=== PATIENT | male | born 1985 | race Caucasian/White ===

== ENCOUNTER 2018-12-20 23:31 | Day surgery (SDC) | payer BC ==
--- NOTE | 2018-12-21 00:13 | EDM.PDOC ---
ED HPI GENERAL MEDICAL PROBLEM - General Chief Complaint: Abdominal Pain Stated Complaint: SIDE PAIN Time Seen by Provider: 12/21/18 00:03 - History of Present Illness INITIAL COMMENTS - FREE TEXT/NARRATIVE: 33-year-old male presents emergency room with abdominal pain. This pain started about 7:00 this evening and awoke him from sleep. He has not had associated nausea vomiting with this but at times thinks he might get a little nauseated he had a normal BM this morning and no pain or frequency with urination. Patient has noted the pain mostly on his right side occasionally comes over to the left side up he has a very sharp shooting sensation into his groin. He denies any fevers or chills he last ate around noon today nothing unusual. Patient has no history of prior abdominal surgeries. Patient does smoke. Abdomen Pain Score (Numeric/FACES): 8 - Related Data Allergies Allergy/AdvReac Type Severity Reaction Status Date / Time Sulfa (Sulfonamide Allergy Hives Verified 12/21/18 00:02 Antibiotics) Home Meds: Home Meds . [No Known Home Meds] 12/21/18 [History] ED ROS GENERAL - Review of Systems Review Of Systems: See Below Constitutional: Reports: No Symptoms HEENT: Reports: No Symptoms Respiratory: Reports: No Symptoms Cardiovascular: Reports: No Symptoms GI/Abdominal: Reports: Abdominal Pain. Denies: Constipation, Diarrhea, Vomiting : Denies: Hematuria, Other Musculoskeletal: Reports: No Symptoms Skin: Reports: No Symptoms Neurological: Reports: No Symptoms ED EXAM, GI/ABD - Physical Exam Exam: See Below Exam Limited By: No Limitations General Appearance: Alert, No Apparent Distress Head: Atraumatic, Normocephalic Neck: Normal Inspection, Supple, Non-Tender, Full Range of Motion Respiratory/Chest: No Respiratory Distress, Lungs Clear, Normal Breath Sounds, No Accessory Muscle Use, Chest Non-Tender Cardiovascular: Normal Peripheral Pulses, Regular Rate, Rhythm, No Edema, No Gallop, No JVD, No Murmur, No Rub GI/Abdominal Exam: Normal Bowel Sounds, Soft, Rebound (He has mild rebound tenderness on 2 separate exams), Tender (He has tenderness the right upper quadrant and in the midepigastric area with palpation of the right upper quadrant causes pain to shoot the left upper quadrant. He also has pain that shoots into his groin, this is a very sharp pain. He has some mild right-sided CVA discomfort in the left) Back Exam: Normal Inspection, CVA Tenderness (R) (Mild). No: CVA Tenderness (L) Extremities: Normal Inspection, No Pedal Edema Neurological: Alert, Oriented, Normal Cognition Course - Vital Signs Last Recorded V/S: Last Vital Signs Temp 36.9 C 12/20/18 23:59 Pulse 90 12/20/18 23:59 Resp 16 12/20/18 23:59 BP 139/90 12/20/18 23:59 Pulse Ox 97 12/20/18 23:59 - Orders/Labs/Meds Orders: Active Orders 24 hr Category Date Time Status Abdomen Pelvis w Cont [CT] Stat Exams 12/21/18 01:06 Taken Labs: Laboratory Tests 12/21/18 12/21/18 12/21/18 Range/Units 00:15 01:25 01:25 WBC 18.77 H (4.23-9.07) K/mm3 RBC 4.48 L (4.63-6.08) M/mm3 Hgb 13.0 L (13.7-17.5) gm/L Hct 39.1 L (40.1-51.0) % MCV 87.3 (79.0-92.2) fl MCH 29.0 (25.7-32.2) pg MCHC 33.2 (32.2-35.5) g/dl RDW Std Deviation 44.5 H (35.1-43.9) fL Plt Count 280 (163-337) K/mm3 MPV 9.6 (9.4-12.3) fl Neutrophils % (Manual) 84 H (40-60) % Band Neutrophils % 0 (0-10) % Lymphocytes % (Manual) 13 L (20-40) % Atypical Lymphs % 0 % Monocytes % (Manual) 2 (2-10) % Eosinophils % (Manual) 1 (0.8-7.0) % Basophils % (Manual) 0 L (0.2-1.2) Platelet Estimate Adequate Plt Morphology Comment Normal RBC Morph Comment Normal Sodium 142 (136-145) mEq/L Potassium 3.9 (3.5-5.1) mEq/L Chloride 108 H (98-107) mEq/L Carbon Dioxide 25 (21-32) mEq/L Anion Gap 12.9 (5-15) BUN 7 (7-18) mg/dL Creatinine 0.8 (0.7-1.3) mg/dL Est Cr Clr Drug Dosing 151.07 mL/min Estimated GFR (MDRD) > 60 (>60) mL/min BUN/Creatinine Ratio 8.8 L (14-18) Glucose 111 H (74-106) mg/dL Calcium 10.3 H (8.5-10.1) mg/dL Total Bilirubin 0.4 (0.2-1.0) mg/dL AST 16 (15-37) U/L ALT 19 (16-63) U/L Alkaline Phosphatase 66 (46-116) U/L Total Protein 7.0 (6.4-8.2) g/dl Albumin 4.0 (3.4-5.0) g/dl Globulin 3.0 gm/dL Albumin/Globulin Ratio 1.3 (1-2) Lipase 79 (73-393) U/L Urine Color Yellow (Yellow) Urine Appearance Clear (Clear) Urine pH 7.0 (5.0-8.0) Ur Specific [place] 1.010 (1.005-1.030) Urine Protein Negative (Negative) Urine Glucose (UA) Negative (Negative) Urine Ketones Negative (Negative) Urine Occult Blood Negative (Negative) Urine Nitrite Negative (Negative) Urine Bilirubin Negative (Negative) Urine Urobilinogen 0.2 (0.2-1.0) Ur Leukocyte Esterase Negative (Negative) Urine RBC Not seen (0-5) /hpf Urine WBC Not seen (0-5) /hpf Ur Squamous Epith Cells 0-5 (0-5) /hpf Urine Bacteria Not seen (FEW) /hpf Urine Mucus Not seen (FEW) /hpf Meds: Medications Discontinued Medications Generic Name Dose Route Start Last Admin Trade Name Freq PRN Reason Stop Dose Admin Fentanyl 100 mcg 12/21/18 01:42 12/21/18 02:24 Sublimaze IVPUSH 12/21/18 01:43 100 mcg ONETIME ONE Administration Sodium Chloride 1,000 mls @ 999 mls/hr 12/21/18 01:04 12/21/18 01:29 Normal Saline IV 12/21/18 02:04 999 mls/hr ONETIME ONE Administration Iopamidol 100 ml 12/21/18 01:39 12/21/18 01:59 Isovue-370 (76%) IV 12/21/18 01:40 100 ml ONETIME ONE Administration Ondansetron HCl 4 mg 12/21/18 01:42 12/21/18 02:23 Zofran IVPUSH 12/21/18 01:43 4 mg ONETIME ONE Administration - Re-Assessments/Exams Free Text/Narrative Re-Assessment/Exam: 12/21/18 03:22 Laboratory results are only remarkable for a white count is elevated 18,000 urinalysis is entirely normal CT was obtained which shows an early uncomplicated acute appendicitis. Case discussed with Dr. Davis who will come in and evaluate the patient OR crew has been called. Departure - Departure Time of Disposition: 03:23 Disposition: Refer to Observation Clinical Impression: Appendicitis - Discharge Information Referrals: PCP,None [Primary Care Provider] - Forms: ED Department Discharge - My Orders Last 24 Hours: My Active Orders 12/21/18 01:06 Abdomen Pelvis w Cont [CT] Stat - Assessment/Plan Last 24 Hours: My Active Orders 12/21/18 01:06 Abdomen Pelvis w Cont [CT] Stat
[2018-12-21] MEDS ORDERED: Sodium Chloride 0.9% 1,000 ML IV ONE (01:04)
[2018-12-21] MEDS ORDERED: Iopamidol 755 Mg/ML 200 ML Bottle IV ONE (01:39)
[2018-12-21] MEDS ORDERED: Ondansetron 4 MG/2 ML SDV IVPUSH ONE (01:42)
[2018-12-21] MEDS ORDERED: fentaNYL 100 MCG/2 ML SDV IVPUSH ONE (01:42)
[2018-12-21] MEDS ORDERED: Rocuronium 50 MG/5 ML Vial ONE (03:49)
[2018-12-21] MEDS ORDERED: Ondansetron 4 MG/2 ML SDV ONE (03:49)
[2018-12-21] MEDS ORDERED: Lidocaine 1% 4 ML ONE (03:49)
[2018-12-21] MEDS ORDERED: fentaNYL 250 MCG/5 ML SDV ONE (03:50)
[2018-12-21] MEDS ORDERED: Propofol 200 MG/20 ML SDV ONE (03:50)
[2018-12-21] MEDS ORDERED: Midazolam 1 MG/ML 2 ML SDV ONE (03:50)
[2018-12-21] MEDS ORDERED: Bupivacaine 0.5% 30 ML SDV ONE (03:52)
--- NOTE | 2018-12-21 04:04 | PCM.PREANE ---
Preanesthetic Assessment - Procedure Proposed Procedure: lap appy - Anesthesia/Transfusion/Family Hx Anesthesia History: No Prior Anesthesia Family History of Anesthesia Reaction: No Transfusion History: No Prior Transfusion(s) - Review of Systems General: Fever Pulmonary: Shortness of Breath (from muscles being so tight) Cardiovascular: No Symptoms Gastrointestinal: Abdominal Pain (started 730pm last night) Neurological: No Symptoms Other: Reports: None - Physical Assessment NPO Status Date: 12/20/18 (water at 11 pm) NPO Status Time: 12:00 O2 Sat by Pulse Oximetry: 97 Respiratory Rate: 16 Vital Signs: Last Vital Signs Temp 98.4 F 12/20/18 23:59 Pulse 90 12/20/18 23:59 Resp 16 12/20/18 23:59 BP 139/90 12/20/18 23:59 Pulse Ox 97 12/20/18 23:59 Height: 6 ft 1 in Weight: 79.832 kg ASA Class: 2E Mental Status: Alert & Oriented x3 Airway Class: Mallampati = 1 Dentition: Reports: Normal Dentition Thyro-Mental Finger Breadths: 3 Mouth Opening Finger Breadths: 3 ROM/Head Extension: Full Lungs: Clear to Auscultation, Normal Respiratory Effort Cardiovascular: Regular Rate, Regular Rhythm - Lab Values: Laboratory Last Values WBC 18.77 K/mm3 (4.23-9.07) H 12/21/18 01:25 RBC 4.48 M/mm3 (4.63-6.08) L 12/21/18 01:25 Hgb 13.0 gm/L (13.7-17.5) L 12/21/18 01:25 Hct 39.1 % (40.1-51.0) L 12/21/18 01:25 MCV 87.3 fl (79.0-92.2) 12/21/18 01:25 MCH 29.0 pg (25.7-32.2) 12/21/18 01:25 MCHC 33.2 g/dl (32.2-35.5) 12/21/18 01:25 RDW Std Deviation 44.5 fL (35.1-43.9) H 12/21/18 01:25 Plt Count 280 K/mm3 (163-337) 12/21/18 01:25 MPV 9.6 fl (9.4-12.3) 12/21/18 01:25 Neutrophils % (Manual) 84 % (40-60) H 12/21/18 01:25 Band Neutrophils % 0 % (0-10) 12/21/18 01:25 Lymphocytes % (Manual) 13 % (20-40) L 12/21/18 01:25 Atypical Lymphs % 0 % 12/21/18 01:25 Monocytes % (Manual) 2 % (2-10) 12/21/18 01:25 Eosinophils % (Manual) 1 % (0.8-7.0) 12/21/18 01:25 Basophils % (Manual) 0 (0.2-1.2) L 12/21/18 01:25 Platelet Estimate Adequate 12/21/18 01:25 Plt Morphology Comment Normal 12/21/18 01:25 RBC Morph Comment Normal 12/21/18 01:25 Sodium 142 mEq/L (136-145) 12/21/18 01:25 Potassium 3.9 mEq/L (3.5-5.1) 12/21/18 01:25 Chloride 108 mEq/L (98-107) H 12/21/18 01:25 Carbon Dioxide 25 mEq/L (21-32) 12/21/18 01:25 Anion Gap 12.9 (5-15) 12/21/18 01:25 BUN 7 mg/dL (7-18) 12/21/18 01:25 Creatinine 0.8 mg/dL (0.7-1.3) 12/21/18 01:25 Est Cr Clr Drug Dosing 151.07 mL/min 12/21/18 01:25 Estimated GFR (MDRD) > 60 mL/min (>60) 12/21/18 01:25 BUN/Creatinine Ratio 8.8 (14-18) L 12/21/18 01:25 Glucose 111 mg/dL (74-106) H 12/21/18 01:25 Calcium 10.3 mg/dL (8.5-10.1) H 12/21/18 01:25 Total Bilirubin 0.4 mg/dL (0.2-1.0) 12/21/18 01:25 AST 16 U/L (15-37) 12/21/18 01:25 ALT 19 U/L (16-63) 12/21/18 01:25 Alkaline Phosphatase 66 U/L (46-116) 12/21/18 01:25 Total Protein 7.0 g/dl (6.4-8.2) 12/21/18 01:25 Albumin 4.0 g/dl (3.4-5.0) 12/21/18 01:25 Globulin 3.0 gm/dL 12/21/18 01:25 Albumin/Globulin Ratio 1.3 (1-2) 12/21/18 01:25 Lipase 79 U/L (73-393) 12/21/18 01:25 Urine Color Yellow (Yellow) 12/21/18 00:15 Urine Appearance Clear (Clear) 12/21/18 00:15 Urine pH 7.0 (5.0-8.0) 12/21/18 00:15 Ur Specific [place] 1.010 (1.005-1.030) 12/21/18 00:15 Urine Protein Negative (Negative) 12/21/18 00:15 Urine Glucose (UA) Negative (Negative) 12/21/18 00:15 Urine Ketones Negative (Negative) 12/21/18 00:15 Urine Occult Blood Negative (Negative) 12/21/18 00:15 Urine Nitrite Negative (Negative) 12/21/18 00:15 Urine Bilirubin Negative (Negative) 12/21/18 00:15 Urine Urobilinogen 0.2 (0.2-1.0) 12/21/18 00:15 Ur Leukocyte Esterase Negative (Negative) 12/21/18 00:15 Urine RBC Not seen /hpf (0-5) 12/21/18 00:15 Urine WBC Not seen /hpf (0-5) 12/21/18 00:15 Ur Squamous Epith Cells 0-5 /hpf (0-5) 12/21/18 00:15 Urine Bacteria Not seen /hpf (FEW) 12/21/18 00:15 Urine Mucus Not seen /hpf (FEW) 12/21/18 00:15 - Allergies Allergies/Adverse Reactions: Allergies Allergy/AdvReac Type Severity Reaction Status Date / Time Sulfa (Sulfonamide Allergy Hives Verified 12/21/18 00:02 Antibiotics) - Blood Blood Available: No - Acknowledgements Anesthesia Type Planned: General Anesthesia Pt an Appropriate Candidate for the Planned Anesthesia: Yes Alternatives and Risks of Anesthesia Discussed w Pt/Guardian: Yes Pt/Guardian Understands and Agrees with Anesthesia Plan: Yes PreAnesthesia Questionnaire Cardiovascular History: Reports: None Respiratory History: Reports: None Gastrointestinal History: Reports: None Genitourinary History: Reports: None - Past Surgical History HEENT Surgical History: Reports: Tonsillectomy Neurological Surgical History: Reports: Other (See Below) (thoracic lumbar spinal injections for neuralgia) - History Comment History Comment: takes excedrin every day- 2pills- for headache- - SUBSTANCE USE Smoking Status *Q: Current Every Day Smoker (1 ppd for 15 years) Tobacco Use Within Last Twelve Months: Cigarettes Second Hand Smoke Exposure: Yes Days Per Week of Alcohol Use: 0 Recreational Drug Use History: No - HOME MEDS Home Medications: Home Meds . [No Known Home Meds] 12/21/18 [History] - CURRENT (IN HOUSE) MEDS Current Meds: Current Medications Discontinued Medications Bupivacaine HCl (Marcaine 0.5%) Confirm Administered Dose 30 ml .ROUTE .STK-MED ONE Stop: 12/21/18 03:53 Fentanyl (Sublimaze) 100 mcg IVPUSH ONETIME ONE Stop: 12/21/18 01:43 Last Admin: 12/21/18 02:24 Dose: 100 mcg Fentanyl (Sublimaze) Confirm Administered Dose 250 mcg .ROUTE .STK-MED ONE Stop: 12/21/18 03:51 Sodium Chloride (Normal Saline) 1,000 mls @ 999 mls/hr IV ONETIME ONE Stop: 12/21/18 02:04 Last Admin: 12/21/18 01:29 Dose: 999 mls/hr Lidocaine HCl (Xylocaine-Mpf 1%) Confirm Administered Dose 4 mls @ as directed .ROUTE .STK-MED ONE Stop: 12/21/18 03:50 Iopamidol (Isovue-370 (76%)) 100 ml IV ONETIME ONE Stop: 12/21/18 01:40 Last Admin: 12/21/18 01:59 Dose: 100 ml Midazolam HCl (Versed 1 Mg/Ml) Confirm Administered Dose 2 mg .ROUTE .STK-MED ONE Stop: 12/21/18 03:51 Ondansetron HCl (Zofran) 4 mg IVPUSH ONETIME ONE Stop: 12/21/18 01:43 Last Admin: 12/21/18 02:23 Dose: 4 mg Ondansetron HCl (Zofran) Confirm Administered Dose 4 mg .ROUTE .STK-MED ONE Stop: 12/21/18 03:50 Propofol (Diprivan 20 Ml) Confirm Administered Dose 200 mg .ROUTE .STK-MED ONE Stop: 12/21/18 03:51 Rocuronium Ecru (Zemuron) Confirm Administered Dose 50 mg .ROUTE .STK-MED ONE Stop: 12/21/18 03:50
[2018-12-21] MEDS ORDERED: cefOXitin 2 GM in Premix Bag 1 BAG IV ONE (04:07)
[2018-12-21] MEDS ORDERED: metroNIDAZOLE/Normal Saline 500 MG in Premix Bag 1 BAG IV ONE (04:07)
[2018-12-21] MEDS ORDERED: metroNIDAZOLE/Normal Saline 100 ML ONE (04:16)
[2018-12-21] MEDS ORDERED: Succinylcholine/Normal Saline 100 MG/5 ML Syringe ONE (04:21)
[2018-12-21] MEDS ORDERED: HYDROmorphone 0.5 MG/0.5 ML Syringe ONE (04:30)
[2018-12-21] MEDS ORDERED: Ondansetron 4 MG/2 ML SDV IVPUSH PRN (04:37)
[2018-12-21] MEDS ORDERED: HYDROmorphone 0.5 MG/0.5 ML Syringe IVPUSH PRN (04:37)
[2018-12-21] MEDS ORDERED: Ketorolac 30 MG/ML SDV ONE (04:38)
[2018-12-21] MEDS ORDERED: Ketamine 500 mg/10 ML MDV ONE (04:41)
[2018-12-21] MEDS ORDERED: Neostigmine Methylsulfate 1 MG/ML 5 ML Syringe ONE (04:52)
--- NOTE | 2018-12-21 05:11 | PCM.OPNOTE ---
- General Post-Op/Procedure Note Date of Surgery/Procedure: 12/21/18 Operative Procedure(s): lap appy Pre Op Diagnosis: acute appendicitis Post-Op Diagnosis: Same Anesthesia Technique: General ET Tube Primary Surgeon: Lawrence Davis EBL in mLs: 2 Complications: None Condition: Good
--- NOTE | 2018-12-21 05:29 | PCM.POSTAN ---
POST ANESTHESIA ASSESSMENT - MENTAL STATUS Mental Status: Somnolent - VITAL SIGNS Pulse Rate: 82 SaO2: 95 Resp Rate: 18 Blood Pressure: 139/69 Temperature: 99.1 F - RESPIRATORY Respiratory Status: Respiratory Rate WNL, Airway Patent, O2 Saturation Stable, Supplemental Oxygen - CARDIOVASCULAR CV Status: Pulse Rate WNL, Blood Pressure Stable - GASTROINTESTINAL GI Status: No Symptoms - PAIN Pain Score: 0 - POST OP HYDRATION Hydration Status: Adequate & Stable
[2018-12-21] MEDS ORDERED: Acetaminophen/HYDROcodone 325-5 MG Tab PO PRN (05:41)
--- NOTE | 2018-12-21 06:29 | PCM48HPAN ---
Post Anesthesia Note - EVALUATION WITHIN 48HRS OF ANESTHETIC Vital Signs in Normal Range: Yes Patient Participated in Evaluation: Yes Respiratory Function Stable: Yes Airway Patent: Yes Cardiovascular Function Stable: Yes Hydration Status Stable: Yes Pain Control Satisfactory: Yes (abd pain ok- still has somewhat of a headache as preop) Nausea and Vomiting Control Satisfactory: Yes Mental Status Recovered: Yes Pulse Rate: 82 Resp Rate: 12 Temperature: 99.1 F Blood Pressure: 139/69
--- NOTE | 2018-12-21 07:40 | CT ---
CT abdomen and pelvis Technique: Multiple axial sections were obtained from above the dome of the diaphragm inferiorly through the pubic symphysis. Intravenous contrast was utilized. Delayed images were obtained through the bladder. No oral contrast has been given. Findings: Dilated retrocecal appendix is seen. Mild inflammatory change is seen compatible with early appendicitis. Visualized lung bases show nothing acute. Liver shows no focal abnormality. Spleen is normal. Adrenal glands show no nodule. Kidney show symmetric contrast enhancement without hydronephrosis or mass. Gallbladder contains no calcified gallstones. Pancreas is normal. Aorta shows no aneurysm. No retroperitoneal adenopathy or mesenteric abnormalities are seen. No pelvic mass or adenopathy is seen. Delayed images show contrast within the distal ureters and within the bladder. Bone window settings were reviewed which appear within normal limits for the patient's age. Impression: 1. Findings compatible with appendicitis. 2. Other portions of the CT exam of the abdomen and pelvis appear within normal limits. Diagnostic code #5 Agree with preliminary report issued by [employer], preliminary report finalized on 12/21/18, 4:04 AM Central Time
--- NOTE | 2018-12-21 10:23 | HP ---
DATE OF ADMISSION: 12/21/2018 HISTORY OF PRESENT ILLNESS: The patient is a 33-year-old, who presented to the emergency room because of abdominal pain, especially in the right lower quadrant. It started yesterday evening around 7 or 8 o'clock. The pain was persistent, increased in intensity, and caused him to go to the ER with some concern for a renal stone and a CT scan was done showing acute appendicitis. He has never had this pain before. PAST MEDICAL HISTORY: He has had his back surgery in the past. SOCIAL HISTORY: He does smoke, but no alcohol. ALLERGIES: None known. FAMILY HISTORY: Diabetes in the family. CURRENT MEDICATIONS: None. REVIEW OF SYSTEMS: No chest pain, shortness of breath, cough, hoarseness, wheezing, fainting, weakness, numbness, convulsions, or diarrhea. No nausea. No vomiting. Does have abdominal pain. PHYSICAL EXAMINATION: GENERAL: Reveals an alert and cooperative male. HEENT: Eyes: Sclerae white. Extraocular muscle motion normal. Oral Cavity: Healthy mucous membranes. LUNGS: Clear. No rales, rhonchi, fremitus, or dullness. HEART: Heart tones regular rate. No S3, S4, jugular venous distention, or murmurs. ABDOMEN: Shows tenderness, quite exquisite in the right lower quadrant. EXTREMITIES: Upper and lower extremities, no angulation deformities. SKIN: Shows warm and dry and multiple tattoos. PSYCHIATRIC: Normal. NEUROLOGIC: No sensorineural deficit. VITAL SIGNS: Temperature 36, pulse 90, and respirations 16. LABORATORY DATA: Reviewed. Laboratory data shows white count of 18,000 and CMP looks good. ASSESSMENT: Acute appendicitis. PLAN: For laparoscopic appendectomy. Discussed the procedure, risks, and complications. He understands and consents. MMODAL /[id number]
--- NOTE | 2018-12-22 10:17 | OR ---
DATE OF OPERATION: 12/21/2018 SURGEON: Lawrence Davis MD PREOPERATIVE DIAGNOSIS: Acute appendicitis. POSTOPERATIVE DIAGNOSIS: Acute appendicitis. OPERATION PERFORMED: Laparoscopic appendectomy done under general anesthetic. FINDINGS: Swollen appendix without any reaction of peritoneum around the appendix. ESTIMATED BLOOD LOSS: About 2 mL. DESCRIPTION OF PROCEDURE: The patient was taken to the operating room, placed in a supine position, given a general anesthetic, and intubated with the abdomen having been clipped and prepped with chlorhexidine prep. He was draped off in a sterile fashion and an incision was made just below the umbilicus and carried down by sharp dissection to the fascia, which was incised. Abdominal cavity entered. Yeny trocar placed and secured with stay sutures. Pneumoperitoneum established, and a 5-mm 30-degree camera inserted. The patient was placed in reverse Trendelenburg leftward tilt. Appendix was noted in the right lower quadrant, which was swollen. A 5-mm port was placed in the right upper quadrant and one in the right lower quadrant. The appendix was then mobilized. Mesoappendix was then mobilized. A window was placed at the base of the appendix. An Endo-ligator was then inserted through this window and the appendix was from the cecum. Another firing of Endo-ligator the mesoappendix from the appendix. The area was watched and no bleeding was noted. The appendix was placed in an endobag and removed from the abdominal cavity, and pneumoperitoneum and ports were removed. The fascia was then closed in the subumbilical port with a running 0 Vicryl suture. The skin of each port closed with subdermal 4-0 Dexon suture. Steri-Strips and sterile dressing placed. The patient tolerated the procedure and sent to the recovery room in a stable condition. ANESTHESIA: MMODAL /[id number]
== END 2018-12-21 07:10 | disposition home or self-care (01) ==
LOC: JD.ED 23:31 → JD.SDS 12-21 03:26
PROVIDERS: ATTEND Surgery
DX: K35.30 Acute appendicitis with localized peritonitis, without perforation or gangrene (principal); F17.210 Nicotine dependence, cigarettes, uncomplicated; Z88.2 Allergy status to sulfonamides
CPT/HCPCS: 36415; 44970; 74177; 80053; 81001; 83690; 85007; 85027; 96361; 96374; 96375; 99285; A9270; J0330; J0694; J1170; J1885; J2001; J2250; J2405; J2704; J2710; J3010; J3490; J7040; Q9967; 00840; 99284

== ENCOUNTER 2019-01-21 09:03 | Emergency (ER) | payer BC ==
[2019-01-21] MEDS ORDERED: Ampicillin/Sulbactam Na 3 GM in Sodium Chloride 0.9% 100 ML IV ONE (09:38)
[2019-01-21] MEDS ORDERED: HYDROmorphone 1 MG/ML Syringe IVPUSH ONE (09:39)
[2019-01-21] MEDS ORDERED: Ondansetron 4 MG/2 ML SDV IVPUSH ONE (09:39)
[2019-01-21] MEDS ORDERED: Sodium Chloride 0.9% 1,000 ML IV SCH (09:45)
--- NOTE | 2019-01-21 09:52 | EDM.PDOC ---
ED HPI GENERAL MEDICAL PROBLEM - General Chief Complaint: ENT Problem Stated Complaint: THROAT PAIN/HOT SWEATS/RECENT APPENDECTOMY Time Seen by Provider: 01/21/19 09:15 Source of Information: Reports: Patient, RN Notes Reviewed History Limitations: Reports: No Limitations - History of Present Illness INITIAL COMMENTS - FREE TEXT/NARRATIVE: The patient underwent appendectomy on 12/21/2018. He states that after surgery, his throat was sore, as would be expected following general anesthesia with endotracheal intubation. The sore throat resolved. The patient now presents to the ED stating that he developed a sore throat on the left, that has progressively been getting worse, with the sensation of throat swelling, for the past 3-4 days. He has had chills and subjective fever that have been coming and going for the past 3 days. He complains of a left earache. He has had a headache, that extends from the left base of his head all the way across the left side of his head, for the past 3 days. He describes the character of the headache as a pressure sensation. He reports both photophobia and phonophobia. No visual changes. No nausea or vomiting. The patient also reports pain to his left posterior neck with a mild tingling sensation radiating down his entire left upper extremity to the 5th finger. His left neck and left upper extremity discomfort are not modified with head position. No prior similar symptoms. The patient states that he has been taking ibuprofen. 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 The patient does not have a PCP. Treatments POLYSOMNOGRAPHY TECH: Reports: NSAIDS Neck Pain Score (Numeric/FACES): 8 - Related Data Allergies Allergy/AdvReac Type Severity Reaction Status Date / Time Sulfa (Sulfonamide Allergy Hives Verified 12/21/18 00:02 Antibiotics) Home Meds: Home Meds . [No Known Home Meds] 12/21/18 [History] Past Medical History Neurological History: Reports: Other (See Below) (Right thoracolumbar post- zoster neuralgia) - Infectious Disease History Infectious Disease History: Reports: Chicken Pox, Influenza, Shingles - Past Surgical History HEENT Surgical History: Reports: Oral Surgery (wisdom teeth extraction), Tonsillectomy GI Surgical History: Reports: Appendectomy (4/) Neurological Surgical History: Reports: Other (See Below) (Right thoracolumbar nerve ablation) - History Comment History Comment: takes excedrin every day- 2pills- for headache- Social & Family History - Family History Family Medical History: Noncontributory - Tobacco Use Smoking Status *Q: Current Every Day Smoker Years of Tobacco use: 19 Packs/Tins Daily: 0.5 Packs/Tins Daily Comment: Down from 2 ppd - Caffeine Use Caffeine Use: Reports: Energy Drinks - Alcohol Use Alcohol Use History: No - Recreational Drug Use Recreational Drug Use: No - Living Situation & Occupation Living situation: Reports: , with Significant Other (Fiance), with Family (Son) Occupation: Employed ([employer]) ED ROS ENT - Review of Systems Review Of Systems: ROS reveals no pertinent complaints other than HPI. ED EXAM, ENT - Physical Exam Exam: See Below Exam Limited By: No Limitations General Appearance: Alert, WD/WN, No Apparent Distress Eye Exam: Bilateral Eye: EOMI, Normal Inspection Ears: Normal External Exam, Normal Canal, Hearing Grossly Normal, Normal TMs ( including on the left) Nose: Normal Inspection, Other (Bilateral nasal mucosa edema) Mouth/Throat: Normal Gums, Normal Lips, Normal Teeth, Pharyngeal Erythema (on left), Throat Swelling (mild, on left), Other (Tonsils absent). No: Uvular Deviation Head: Atraumatic, Normocephalic Neck: Supple, Full Range of Motion, Lymphadenopathy (L) (posterior cervical chain only. Tender.). No: Lymphadenopathy (R) Respiratory/Chest: No Respiratory Distress, Lungs Clear, Normal Breath Sounds, No Accessory Muscle Use Cardiovascular: Normal Peripheral Pulses, Regular Rate, Rhythm, No Edema, No Gallop, No JVD, No Murmur, No Rub GI/Abdominal: Normal Bowel Sounds, Soft, Non-Tender, No Organomegaly, No Distention, No Abnormal Bruit, No Mass (Male) Exam: Deferred Rectal (Males) Exam: Deferred Back: Normal Inspection, Full Range of Motion Extremities: Normal Inspection, Normal Range of Motion, No Pedal Edema, Normal Capillary Refill Neurological: Alert, Oriented, Normal Cognition, No Motor/Sensory Deficits Psychiatric: Normal Affect Skin: Warm, Dry, Intact, Normal Color, No Rash Course - Vital Signs Last Recorded V/S: Last Vital Signs Temp 36.6 C 01/21/19 09:11 Pulse 95 01/21/19 09:11 Resp 16 01/21/19 09:11 BP 141/87 H 01/21/19 09:11 Pulse Ox 100 01/21/19 09:11 - Orders/Labs/Meds Orders: Active Orders 24 hr Category Date Time Status Soft Tissue Neck w Cont [CT] Stat Exams 01/21/19 09:35 Taken CULTURE STREP A CONFIRMATION [] Stat Lab 01/21/19 09:30 Results STREP SCRN A RAPID W CULT CONF [] Stat Lab 01/21/19 09:30 Results Sodium Chloride 0.9% [Normal Saline] 1,000 ml Med 01/21/19 09:45 Active IV ASDIRECTED Medication Orders Sodium Chloride (Normal Saline) 1,000 mls @ 150 mls/hr IV ASDIRECTED FRANCISCO Last Admin: 01/21/19 09:52 Dose: 150 mls/hr Labs: Laboratory Tests 01/21/19 01/21/19 Range/Units 09:40 09:40 WBC 13.75 H (4.23-9.07) K/mm3 RBC 4.25 L (4.63-6.08) M/mm3 Hgb 12.1 L (13.7-17.5) gm/L Hct 36.8 L (40.1-51.0) % MCV 86.6 (79.0-92.2) fl MCH 28.5 (25.7-32.2) pg MCHC 32.9 (32.2-35.5) g/dl RDW Std Deviation 42.4 (35.1-43.9) fL Plt Count 318 (163-337) K/mm3 MPV 9.5 (9.4-12.3) fl Neutrophils % (Manual) 68 H (40-60) % Band Neutrophils % 0 (0-10) % Lymphocytes % (Manual) 13 L (20-40) % Atypical Lymphs % 0 % Monocytes % (Manual) 15 H (2-10) % Eosinophils % (Manual) 3 (0.8-7.0) % Basophils % (Manual) 1 (0.2-1.2) Platelet Estimate Adequate RBC Morph Comment Normal Sodium 138 (136-145) mEq/L Potassium 4.0 (3.5-5.1) mEq/L Chloride 103 (98-107) mEq/L Carbon Dioxide 26 (21-32) mEq/L Anion Gap 13.0 (5-15) BUN 12 (7-18) mg/dL Creatinine 0.9 (0.7-1.3) mg/dL Est Cr Clr Drug Dosing 134.40 mL/min Estimated GFR (MDRD) > 60 (>60) mL/min BUN/Creatinine Ratio 13.3 L (14-18) Glucose 113 H (74-106) mg/dL Calcium 8.9 (8.5-10.1) mg/dL Total Bilirubin 0.3 (0.2-1.0) mg/dL AST 13 L (15-37) U/L ALT 16 (16-63) U/L Alkaline Phosphatase 80 (46-116) U/L Total Protein 7.7 (6.4-8.2) g/dl Albumin 3.8 (3.4-5.0) g/dl Globulin 3.9 gm/dL Albumin/Globulin Ratio 1.0 (1-2) Meds: Medications Generic Name Dose Route Start Last Admin Trade Name Elsy PRN Reason Stop Dose Admin Sodium Chloride 1,000 mls @ 150 mls/hr 01/21/19 09:45 01/21/19 09:52 Normal Saline IV 150 mls/hr ASDIRECTED FRANCISCO Administration Discontinued Medications Generic Name Dose Route Start Last Admin Trade Name Elsy PRN Reason Stop Dose Admin Hydromorphone HCl 1 mg 01/21/19 09:39 01/21/19 09:54 Dilaudid IVPUSH 01/21/19 09:40 1 mg ONETIME ONE Administration Ampicillin Sodium/Sulbactam 100 mls @ 200 mls/hr 01/21/19 09:38 01/21/19 09: 58 Sodium 3 gm/ Sodium Chloride IV 01/21/19 10:07 200 mls/hr ONETIME ONE Administration Iohexol 60 ml 01/21/19 10:27 01/21/19 10:48 Omnipaque-300 IVPUSH 01/21/19 10:28 60 ml ONETIME ONE Administration Nicotine 21 mg 01/21/19 09:58 01/21/19 10:11 Habitrol TRDERM 01/21/19 09:59 21 mg ONETIME ONE Administration Ondansetron HCl 4 mg 01/21/19 09:39 01/21/19 09:52 Zofran IVPUSH 01/21/19 09:40 4 mg ONETIME ONE Administration - Re-Assessments/Exams Free Text/Narrative Re-Assessment/Exam: 01/21/19 10:07 The patient appears to have retropharyngeal cellulitis versus an abscess. I have ordered a CT of the neck with IV contrast, along with blood work and a rapid strep test, which I expect to be negative, to evaluate, but in the meantime, the patient will be started on Unasyn. I ordered some Dilaudid, Zofran , and IV fluid for discomfort. The patient will need to be hospitalized, likely for a couple of days, to receive IV antibiotics, until he has clinically turned the corner, at which time he can be switched to oral antibiotics. Dr. Hoffman was here in the ED, and we discussed the case - I will call him when I have the CT results. If the patient requires incision and drainage, he will need to be transferred to [facility] for ENT evaluation. 01/21/19 11:59 Notified by the [facility] Radiologist at 11:55 that the patient has a peritonsillar phlegmon, however, when I mentioned that the patient had a tonsillectomy as a teenager, he changed his opinion to that of a retropharyngeal abscess. 01/21/19 12:02 CT of the neck with IV contrast is read by [facility] as "There is suggestion of left- sided tonsillitis with extensive 3 x 3 x 3.6 cm regional phlegmon involving the parapharyngeal space. There is more ill-defined retropharyngeal fluid which may be reactive or related to more extensive/of abscess. 01/21/19 12:09 CT results discussed with the patient. The patient will require transfer to [facility]. He does not have a preference of [facility] versus [facility]. CT images pushed to [facility] at 12:08. 01/21/19 12:[address] Yoan Francis, ENT at [facility], at 12:14. He agreed that the patient should be transferred, but the patient will be admitted to the Hospitalist, with him on consult. Case then discussed with Dr. Landaverde, Hospitalist at [facility], at 12: 19. He accepted the patient for direct admission to their facility. The patient will be transported by ground ambulance. Departure - Departure Time of Disposition: 12:22 Disposition: DC/Tfer to Acute Hospital 02 Condition: Fair Clinical Impression: Retropharyngeal abscess - Discharge Information *PRESCRIPTION DRUG MONITORING PROGRAM REVIEWED*: Not Applicable *COPY OF PRESCRIPTION DRUG MONITORING REPORT IN PATIENT DAPHNE: Not Applicable Referrals: Yoan Francis MD [Ordering Only Provider] - - My Orders Last 24 Hours: My Active Orders 01/21/19 09:30 CULTURE STREP A CONFIRMATION [RM] Stat STREP SCRN A RAPID W CULT CONF [RM] Stat 01/21/19 09:35 Soft Tissue Neck w Cont [CT] Stat 01/21/19 09:45 Sodium Chloride 0.9% [Normal Saline] 1,000 ml IV ASDIRECTED - Assessment/Plan Last 24 Hours: My Active Orders 01/21/19 09:30 CULTURE STREP A CONFIRMATION [RM] Stat STREP SCRN A RAPID W CULT CONF [RM] Stat 01/21/19 09:35 Soft Tissue Neck w Cont [CT] Stat 01/21/19 09:45 Sodium Chloride 0.9% [Normal Saline] 1,000 ml IV ASDIRECTED
[2019-01-21] MEDS ORDERED: Nicotine 21 MG/24 Hr Patch TRDERM ONE (09:58)
[2019-01-21] MEDS ORDERED: Iohexol 647 MG/ML 100 ML Bottle IVPUSH ONE (10:27)
--- NOTE | 2019-01-23 09:31 | CT ---
CT neck Technique: Multiple axial sections were obtained from above the external auditory canals inferiorly to the lung apices. Intravenous contrast was utilized. Comparison: No prior neck imaging. Findings: Asymmetric soft tissue prominence with edema is seen within the left hypopharynx believed to be in area of palatine tonsils which extends superiorly and to the left side of the soft tissues of the neck. Findings felt compatible with diffuse infection. No drainable fluid collections are seen at this time. No right-sided abnormality is appreciated. Prevertebral soft tissues are normal. Uvula is increased in size compatible with soft tissue swelling. Epiglottis appears normal in size. Visualized sinuses are clear. Parotid and submandibular salivary glands are felt to be within normal limits. Small scattered normal-appearing lymph nodes are seen throughout the neck. Small portion of the visualized lung apices are clear. Impression: 1. Extensive soft tissue swelling in the region of the left palatine tonsils extending superiorly on the left side within the neck. Findings are felt compatible with diffuse soft tissue infection. No drainable abscess is seen at this time although given the amount of edema, patient is at risk for future abscess. Close clinical follow-up will be needed. 2. Soft tissue prominence of the uvula. 3. No additional abnormality is appreciated. Diagnostic code #5 I agree with preliminary report from [facility], finalized on 01/21/19, 12:54 PM Central Time
== END 2019-01-21 12:46 ==
LOC: JD.ED 09:03
DX: J39.0 Retropharyngeal and parapharyngeal abscess (principal); F17.210 Nicotine dependence, cigarettes, uncomplicated; Z88.2 Allergy status to sulfonamides; Z98.890 Other specified postprocedural states; Z90.49 Acquired absence of other specified parts of digestive tract
CPT/HCPCS: 36415; 70491; 80053; 85007; 85027; 87081; 87430; 96365; 96375; 99284; A9270; J0295; J1170; J2405; J7030; J7040; Q9967; 99285